=== PATIENT | female | born 1975 | race Caucasian/White ===

== ENCOUNTER 2024-02-15 18:41 | Emergency (ER) | payer OTHER, SELFPAY ==
[2024-02-15 18:43] VITALS: BP 124/44
[2024-02-15 19:16] VITALS: BP 136/72
--- NOTE | 2024-02-15 19:25 | ED.GENMED ---
History of Present Illness
General
Chief Complaint: Heart Rate Problem
Source: patient
Exam Limitations: none
Time Seen by Provider: 02/15/24 19:14
Travel History
Have you had any contact with someone who has COVID-19?: No
Do you have any symptoms of coronavirus? Fever > 100 degrees, chills, cough, shortness of breath, sore throat, loss of taste or smell, muscle aches, or headache?: No
History of Present Illness
History of Present Illness:
This is a 48 year old female that comes in with multiple complaints. Stats that today she was feeling very shaky. States that she felt like her heart was racing. States that before she started with a cold. States that she has had a
fever on and off with a cough. States that she is feeling weak and lethargic today. States that she also became sweaty today. States that she has had left sided chest tightness with SOB, and a headache for the past 2-3 weeks. Denies any fever,
chills, abd pain, nausea, vomiting, diarrhea, dizziness, urinary burning.
Past History
Past History
ED Past Medical History: None; Negative Asthma, HTN, Hypercholesterolemia or NIDDM
ED Past Surgical History: (X1) and Tonsilectomy
Social History
Tobacco: Smoker
Alcohol: Occasional
Personal:
Living: with family
Review of Systems
Review of Systems
All Other Systems: ROS reviewed and negative except as documented in HPI and ROS
Constitutional: Reports fever (on and off) and fatigue; Denies chills
EENT: Reports no symptoms
Respiratory: Reports cough and trouble breathing
Cardiac: Reports chest pain (Tightness)
ABD/GI: Reports no symptoms; Denies abdominal pain, nausea, vomiting or diarrhea
: Denies dysuria, frequency or urgency
Musculoskeletal: Reports no symptoms
Skin: Reports no symptoms
Neurological: Reports headache and weakness; Denies dizzy
Psychiatric: Reports no symptoms
Phy Exam
General Physical Exam
General Presentation: well appearing and no apparent distress
General age: appears stated age
General Skin: warm and dry
General Habitus: normal
General Mental: alert
General Hydration: appears well hydrated
ENT Exam
ENT Exam: TM's normal, pharynx normal and neck supple
Eye Exam
Eye Exam: EOMI
Cardiovascular Exam
Cardiovascular Exam: regular rate/rhythm, no edema, no murmur and normal peripheral pulses
Pulmonary Exam
Pulmonary Exam: lungs clear, no respiratory distress, no rales, chest non tender, no crackles, no rhonchi, no wheezing and no cough
Gastrointestinal Exam
Gastrointestinal Exam: normal bowel sounds, non tender, soft, no organomegaly, no pulsatile mass and non distended
Musculoskeletal Exam
Musculoskeletal Exam: full ROM and no edema
Skin Exam
Skin Exam: normal color, warm/dry, no rash and no petechia
Psychiatric Exam
Psychiatric Exam: normal mood/affect
Course
Orders/Labs/Results
Orders:
Orders
02/15/24 18:47
Electrocardiogram (*1) Urgent
Reason for Study: Chest Pain
EKG- Treatment ONCE
02/15/24 19:23
0.9% Sodium Chloride 1000 ml [Nss] 1,000 ml IV BOLUS
Pantoprazole [Protonix IV] 40 mg IV NOW STA
02/15/24 19:24
Test Result ONCE
CR Chest - 2 Views Urgent
Comment:
Reason For Exam: Cough. left sided discomfort
02/15/24 19:52
Complete Blood Count/With Diff Urgent
Comprehensive Metabolic Panel Urgent
D-Dimer Urgent
HCG, Serum Qualitative Screen Urgent
TSH Reflex To Free T4 Urgent
Troponin I Urgent
Urinalysis Reflex To Culture Urgent
Date Specimen was Collected: 02/15/24
Time Specimen was Collected: 19:43
Abnormal Lab Results
02/15/24
19:52
RBC 4.00 L 10^6/uL
(4.20-5.40)
Hgb 9.3 L g/dL
(12.0-16.0)
Hct 28.8 L %
(37.0-47.0)
MCV 72.0 L fL
(81.0-99.0)
MCH 23.3 L pg
(27.0-31.0)
MCHC 32.3 L g/dL
(33.0-37.0)
RDW 19.8 H %
(11.5-14.5)
Plt Count 710 H 10^3/uL
(130-400)
Absolute Monos (auto) 0.8 H 10^3/uL
(0.1-0.6)
02/15/24 19:52
02/15/24 19:52
H/H low. Anemia, Thrombocythemia, D-dimer 0.41, HCG negative, Urine negative for infection. Troponin <0.012, TSH normal at 2.16
Vital Signs
Initial and Last Documented VS:
Initial Vital Signs
Temp Pulse Resp BP Pulse Ox
98.3 F 96 16 124/44 97
02/15/24 18:43 02/15/24 18:43 02/15/24 18:43 02/15/24 18:43 02/15/24 18:43
Last Documented Vital Signs
Temp Pulse Resp BP Pulse Ox
98.3 F 65 17 136/72 98
02/15/24 18:43 02/15/24 20:05 02/15/24 20:05 02/15/24 19:16 02/15/24 20:05
MDM/Problems Addressed
Differential Diagnosis Includes:
Anxiety, PNA
MDM/Problems Addressed:
This is a 48 year old female that comes in with c/o feeling lke her heart was racing. States that she has had cold symptoms since before States that she has a cough and has had fever on and off. States that she was feeling weak and
lethargic.
Will check labs. Chest x-ray. Urine and give IV fluids.
Back into see patient. Explained that her blood work shows Anemia. Her D-dimer is negative. Troponin is normal and her TSH is normal. Urine negative for infection. Explained that this may be a little anxiety or due to stress. Patient to follow up
with the family doctor. Return with any concerns .
Chronic conditions affecting care:
NA
Acute Exacerbation and/or Progression of Chronic Illness:
NA
*Radiology
Radiology exam reviewed: radiology read reviewed (Chest- No acute cardiopulmonary process)
*Pulse Oximetry
Patient hypoxic: no
*EKG
Interpreted by ED Provider?: Yes
Heart Rate: 72
Rate: normal
Rhythm: sinus
[place]: normal axis
Interval: normal interval
QRS Pattern: normal QRS
Ischemia: no ischemia
*Supervisor Roving Department Interpretation
Rate: normal
Heart Rate: 73
Rhythm: sinus
*Critical Care Note
Total Time (30-74mins, 75-104mins- exclusive of procedures): Not Applicable
ED Attending Note
-
Portions of this chart may have been created with voice recognition software.� Occasional wrong word or��sound alike� substitutions may have occurred due to the inherent limitations of voice recognition software.
Discharge Plan
Departure
Patient Disposition: Home (Routine Discharge)
Date of Disposition: 02/15/24
Time of Disposition: 21:43
Patient with high blood pressure during this ER visit?: Yes
Condition: Good
Covid-19: Not Applicable
Discharge Problem:
Anxiety
Instructions: Anxiety, Adult ED, BLOOD PRESSURE
Referrals:
NONE,* [Family Provider] -
Activity Restrictions/Additional Instructions:
As discussed, your blood work shows that you are anemic. Please follow up with the family doctor for further evaluation. Your chest x-ray is normal along with your ECG. Urine is negative for any infection and your Thyroid function is normal. Please
increase your water intake to 8-8oz glasses daily. IF YOU HAVE ANY OTHER CONCERNS PLEASE RETURN TO THE EMERGENCY ROOM.
Interventions
Interventions:
*Risk Screen - Suicide Last Done: 02/15/24 18:43
*General Assessment Last Done: 02/15/24 18:43
*Neglect/Abuse Screening Last Done: 02/15/24 18:43
ED- Fall Risk Assessment Last Done: 02/15/24 20:01
*ED COVID-19 Vaccine History Last Done: 02/15/24 20:09
ED- Cardiac Assessment Last Done: 02/15/24 20:00
ED- Pulmonary Assessment Last Done: 02/15/24 20:00
Discharge Date and Time
Print Language: MALAY
[2024-02-15] MEDS: PROTONIX IV 40 MG IV (19:51)
[2024-02-15] MEDS: NSS 1000 IV (19:51)
[2024-02-15 20:00] LABS: % Basophils 0.9 % (0-2); % Immature Granulocytes 0.4 % (0-0.5); % Lymphocytes 25.4 % (20.5-51.1); % Monocytes 8.4 % (1.7-9.3); % Neutrophils 62.9 % (42.2-75.2); Absolute Basophils 0.1 10^3/uL (0-0.2); Absolute Eosinophils 0.2 10^3/uL (0-0.7); Absolute Lymphocytes 2.4 10^3/uL (1.2-3.4); Absolute Monocytes 0.8 10^3/uL (0.1-0.6); Hematocrit 28.8 % (37.0-47.0); Hemoglobin 9.3 g/dL (12.0-16.0); Mean Corp Hgb Conc. 32.3 g/dL (33.0-37.0); Mean Corpuscular Hgb 23.3 pg (27.0-31.0); Nucleated Red Blood Cells % 0 %; Red Cell Dist. Width 19.8 % (11.5-14.5); Urine Albumin Negative (Neg - Trace); Urine Bilirubin Negative (Negative); Urine Character Clear (Clear); Urine Color Yellow; Urine Glucose Negative (Negative); Urine Ketone Negative (Negative); Urine Leukocyte Negative (Negative); Urine Nitrite Negative (Negative); Urine Occult Blood Negative (Negative); Urine Specific Gravity 1.005 (<1.030); Urine Urobilinogen Negative (Neg - 1+); White Blood Cell Count 9.6 10^3/uL (4.8-10.8)
[2024-02-15 20:16] LABS: D-Dimer 0.41 ug/mlFEU (0.00-0.50)
[2024-02-15 20:19] LABS: ALT (SGPT) 20 U/L (0-35); AST (SGOT) 27 U/L (14-36); Albumin 4.7 g/dl (3.5-5.0); Alkaline Phosphatase 49 U/L (38-126); Blood Urea Nitrogen 9 mg/dl (7-17); Calcium 10.2 mg/dl (8.4-10.2); Carbon Dioxide 25 mmol/L (22-30); Chloride 105 mmol/L (98-107); Glucose 93 mg/dl (70-99); Potassium 3.9 mmol/L (3.5-5.1); Sodium 139 mmol/L (135-145); Total Bilirubin 0.5 mg/dl (0.2-1.3); Total Protein 7.4 g/dl (6.3-8.2); eGFR > 60.00
[2024-02-15 20:21] LABS: HCG, Serum Qualitative Screen Negative
[2024-02-15 20:23] LABS: Mean Platelet Volume 9.1 fL (7.4-10.4); Platelet Count 710 10^3/uL (130-400)
[2024-02-15 20:46] LABS: Troponin I < 0.012 ng/ml
[2024-02-15 20:51] LABS: TSH Reflex To Free T4 2.16 uIU/ml (0.47-4.68)
[2024-02-15 21:00] VITALS: BP 120/66
== END 2024-02-15 21:55 | disposition home or self-care (01) ==
LOC: EMR 18:41
PROVIDERS: Clinical Nurse Specialist Family Health; EMERGENCY PHYSICIAN Emergency Medicine
DX: F41.9 Anxiety disorder, unspecified (principal); D64.9 Anemia, unspecified; D75.839 Thrombocytosis, unspecified; F17.200 Nicotine dependence, unspecified, uncomplicated
CPT/HCPCS: 99283; 96374; 96361; 71046; 80053; 81003; 84443; 84484; 84703; 85025; 85379; 93005

== ENCOUNTER → 2024-04-02 06:49 | Outpatient (REF) | payer OTHER, SELFPAY ==
[2024-04-02 07:42] LABS: Hematocrit 28.1 % (37.0-47.0); Hemoglobin 8.8 g/dL (12.0-16.0); Mean Corp Hgb Conc. 31.3 g/dL (33.0-37.0); Mean Corpuscular Hgb 23.1 pg (27.0-31.0); Mean Corpuscular Volume 73.8 fL (81.0-99.0); Mean Platelet Volume 9.3 fL (7.4-10.4); Platelet Count 653 10^3/uL (130-400); Red Blood Cell Count 3.81 10^6/uL (4.20-5.40); Red Cell Dist. Width 18.5 % (11.5-14.5); White Blood Cell Count 5.3 10^3/uL (4.8-10.8)
[2024-04-02 08:05] LABS: ALT (SGPT) 21 U/L (0-35); AST (SGOT) 28 U/L (14-36); Albumin 4.4 g/dl (3.5-5.0); Alkaline Phosphatase 42 U/L (38-126); Blood Urea Nitrogen 5 mg/dl (7-17); Calcium 9.7 mg/dl (8.4-10.2); Carbon Dioxide 22 mmol/L (22-30); Chloride 108 mmol/L (98-107); Glucose 98 mg/dl (70-99); HDL Cholesterol 56 mg/dl; Iron 26 ug/dl (37-170); LDL Cholesterol, Calculated 113 mg/dl; Potassium 4.8 mmol/L (3.5-5.1); Sodium 138 mmol/L (135-145); Total Bilirubin 0.4 mg/dl (0.2-1.3); Total Cholesterol 179 mg/dl (50-199); Total Protein 6.7 g/dl (6.3-8.2); Triglyceride 53 mg/dl (10-149); Very Low Density Lipoprotein 10 mg/dl (0-30); eGFR > 60.00
[2024-04-02 08:14] LABS: Percent Saturation 5 % (20-50); Total Iron Binding Capacity 463 ug/dl (265-497)
[2024-04-02 08:28] LABS: Free T4 1.01 ng/dl (0.78-2.19)
[2024-04-02 08:41] LABS: TSH 2.53 uIU/ml (0.47-4.68)
[2024-04-02 08:45] LABS: Ferritin 3.8 ng/ml (6.24-137)
[2024-04-02 09:01] LABS: Vitamin B12 386 pg/ml (239-931)
[2024-04-02 09:31] LABS: Vitamin D, 25-OH*** 68.7 ng/mL (30-80)
== END ==
LOC: REG 06:49
PROVIDERS: ATTENDING PHYSICIAN Family Medicine
DX: E55.9 Vitamin D deficiency, unspecified (principal); E78.2 Mixed hyperlipidemia; D64.9 Anemia, unspecified; Z00.01 Encounter for general adult medical examination with abnormal findings
CPT/HCPCS: 36415; 80053; 80061; 82306; 82607; 82728; 83540; 83550; 84439; 84443; 85027

== ENCOUNTER → 2024-04-25 06:22 | Day surgery (SDC) | payer OTHER, SELFPAY | LOC: GI 06:22 | PROVIDERS: ATTENDING PHYSICIAN Internal Medicine Gastroenterology; FAMILY PHYSICIAN Family Medicine | DX: D50.9 Iron deficiency anemia, unspecified (principal); K62.89 Other specified diseases of anus and rectum; K64.8 Other hemorrhoids; K64.4 Residual hemorrhoidal skin tags; K31.89 Other diseases of stomach and duodenum; K29.50 Unspecified chronic gastritis without bleeding; K90.0 Celiac disease | CPT/HCPCS: 45378; 43239; 88305; 88342 ==

== ENCOUNTER → 2024-04-26 06:57 | Outpatient (REF) | payer OTHER, SELFPAY ==
[2024-04-26 08:00] LABS: IgA 134 mg/dl (70-400)
== END ==
LOC: REG 06:57
PROVIDERS: ATTENDING PHYSICIAN Internal Medicine Gastroenterology; FAMILY PHYSICIAN Family Medicine
DX: D50.9 Iron deficiency anemia, unspecified (principal)
CPT/HCPCS: 36415; 82784; 83516; 86231

== ENCOUNTER → 2024-05-03 17:44 | Outpatient (REF) | payer OTHER, SELFPAY ==
[2024-05-06 02:51] LABS: HPV, High Risk Not Detected; HPV, High Risk Source Anal
== END ==
LOC: CLAB 17:44
PROVIDERS: ATTENDING PHYSICIAN Surgery
DX: Z86.19 Personal history of other infectious and parasitic diseases (principal)
CPT/HCPCS: 87624; 88112

== ENCOUNTER 2024-10-21 16:42 | Emergency (ER) | payer OTHER, SELFPAY ==
[2024-10-21 16:46] VITALS: BP 135/85
[2024-10-21 17:06] VITALS: BMI 24.2
--- NOTE | 2024-10-21 19:10 | ED.GENMED ---
History of Present Illness
General
Chief Complaint: DVT/Possible Blood Clot
Source: patient
Exam Limitations: none
Time Seen by Provider: 10/21/24 17:05
Nursing documentation reviewed up to this point in time: agreed with
History of Present Illness
History of Present Illness:
Patient to ED with complaint of left calf pain. States she has been feeling off for the past few days and then today noticed calf pain. States she is following with heme/onc for elevated platelets, anemia. has appt for iron infusion tomorrow.
Brought self to ED for fabien.
Past History
Past History
ED Past Medical History: None; Negative Asthma, HTN, Hypercholesterolemia or NIDDM
ED Past Surgical History: (X1) and Tonsilectomy
Social History
Tobacco: Smoker
Alcohol: Occasional
Personal:
Living: with family
Review of Systems
Review of Systems
Allergies reviewed?: Yes
All Other Systems: ROS reviewed and negative except as documented in HPI and ROS
Constitutional: Reports no symptoms
EENT: Reports no symptoms
Respiratory: Reports no symptoms
Cardiac: Reports no symptoms
ABD/GI: Reports no symptoms
Musculoskeletal: Reports muscle pain (pain to left calf)
Skin: Reports no symptoms
Neurological: Reports no symptoms
Psychiatric: Reports no symptoms
Phy Exam
General Physical Exam
General Presentation: well appearing and no apparent distress
General age: appears stated age
General Skin: warm and dry
General Habitus: normal
General Mental: alert
Musculoskeletal Exam
Musculoskeletal Exam: full ROM, no edema and neuro vasc intact
Skin Exam
Skin Exam: normal color, warm/dry and no rash
Psychiatric Exam
Psychiatric Exam: normal mood/affect
Course
Orders/Labs/Results
Orders:
Orders
10/21/24 17:04
Legs, left US [US Periph Venous LOWER Ext LT] Urgent
Comment: no injury, started 3 days ago
Reason For Exam: left calf pain, swelling,
10/21/24 17:25
Electrocardiogram (*1) Urgent
Reason for Study: Chest Pain
EKG- Treatment ONCE
Vital Signs
Initial and Last Documented VS:
Initial Vital Signs
Pulse Resp Pulse Ox
75 18 97
10/21/24 16:43 10/21/24 16:43 10/21/24 16:43
Last Documented Vital Signs
Temp Pulse Resp BP Pulse Ox
99.2 F 75 18 135/85 97
10/21/24 16:46 10/21/24 16:43 10/21/24 16:43 10/21/24 16:46 10/21/24 16:43
*Radiology
Radiology exam reviewed: radiology read reviewed
*Pulse Oximetry
Patient hypoxic: no
*Critical Care Note
Total Time (30-74mins, 75-104mins- exclusive of procedures): Not Applicable
ED Attending Note
-
Portions of this chart may have been created with voice recognition software.� Occasional wrong word or��sound alike� substitutions may have occurred due to the inherent limitations of voice recognition software.
Discharge Plan
Departure
Patient Disposition: Home (Routine Discharge)
Date of Disposition: 10/21/24
Time of Disposition: 19:08
Patient with high blood pressure during this ER visit?: No
Condition: Good
Covid-19: Not Applicable
Discharge Problem:
Calf pain
Instructions: Ibuprofen, Musculoskeletal Pain
Referrals:
Evonne Torres PA [Family Provider] - Follow up in 2-3 days
Interventions
Interventions:
*General Assessment Last Done: 10/21/24 17:31
ED- Cardiac Assessment Last Done: 10/21/24 17:31
ED- Pulmonary Assessment Last Done: 10/21/24 17:31
ED-Peripheral Vascular Assessment Last Done: 10/21/24 17:31
ED-Skin Assessment Last Done: 10/21/24 17:31
Discharge Date and Time
Print Language: BELGIAN
[2024-10-21 19:14] VITALS: BP 135/77
== END 2024-10-21 19:16 | disposition home or self-care (01) ==
LOC: EMR 16:42
PROVIDERS: EMERGENCY PHYSICIAN Student in an Organized Health Care Education/Training Program; FAMILY PHYSICIAN Family Medicine
DX: M79.662 Pain in left lower leg (principal); E11.9 Type 2 diabetes mellitus without complications; I10 Essential (primary) hypertension; F17.200 Nicotine dependence, unspecified, uncomplicated
CPT/HCPCS: 99284; 93005; 93971